=== PATIENT | male | born 1945 | race Caucasian/White ===

== ENCOUNTER 2022-02-03 09:50 | Outpatient (CLI) | payer MEDICARE, SELFPAY ==
[2022-02-03 14:36] LABS: Chloride* 101 mmol/L (96-114); Potassium* 5.6 mmol/L (3.6-5.1); Sodium* 139 mmol/L (135-149)
[2022-02-03 14:39] LABS: Carbon Dioxide* 32 mmol/L (20-32); Creatinine* 0.9 mg/dL (0.5-1.5); Estimated Glomerular Filt Rate 90 ml/min
[2022-02-03 14:40] LABS: Blood Urea Nitrogen* 16 mg/dL (7-30); Calcium* 10.1 mg/dL (8.4-10.6); Glucose* 114 mg/dL (60-115)
== END 2022-02-03 09:51 | disposition home or self-care (01) ==
LOC: LONREF 09:51
PROVIDERS: PCP Family Medicine; Visit Provider Family Medicine
DX: Z01.818 Encounter for other preprocedural examination (principal)
CPT/HCPCS: 80048

== ENCOUNTER 2022-07-29 11:18 | Outpatient (CLI) | payer MEDICARE, SELFPAY | END 2022-07-29 11:19 | disposition home or self-care (01) | PROVIDERS: PCP Family Medicine; Visit Provider Family Medicine | DX: R63.4 Abnormal weight loss (principal); E78.5 Hyperlipidemia, unspecified; R53.1 Weakness; R05.9 Cough, unspecified; Z12.5 Encounter for screening for malignant neoplasm of prostate; J47.9 Bronchiectasis, uncomplicated | CPT/HCPCS: 80061; 80076; 84153; 84443 ==

== ENCOUNTER 2022-08-06 08:39 | Outpatient (CLI) | payer MEDICARE, SELFPAY ==
--- NOTE | 2022-08-06 09:00 | CRLHL7_ITS ---
For Patients: As a result of the Century Cures Act, medical imaging exams and procedure reports are released immediately into your electronic medical record. You may view this report before your referring provider. If you have questions, please contact your health care provider. INDICATION: Unexplained weight loss. TECHNIQUE: CT chest, abdomen and pelvis acquired with 78 cc Isovue 370 IV contrast. COMPARISON: 05/19/2016. FINDINGS: CHEST Lungs and pleura: Relatively large areas of bronchiolitis in the right middle lobe and right lower lobe. No lobar consolidations. No suspicious nodules. No effusions, thickening, or pneumothorax. Heart and vasculature: Heart size is normal. Thoracic aorta and pulmonary artery are normal in caliber. Lymph node/mediastinum: No mediastinal, hilar, or axillary adenopathy. Chest wall: Normal. Bones: No suspicious bone lesions. ABDOMEN AND PELVIS: Liver: Normal in caliber and attenuation. No masses. Gallbladder and bile ducts: Unremarkable. Pancreas: Unremarkable. Spleen: Normal in caliber. No masses. Adrenal glands: Unremarkable. No masses. Kidneys: Single tiny nonobstructive stone is in the left kidney. Kidneys otherwise unremarkable. No hydronephrosis. GI tract: Normal in caliber and appearance. No sign of mass or inflammation. Vasculature: Unremarkable. Mesenteric arteries are patent. Lymph nodes: No lymphadenopathy. Omentum/peritoneum/retroperitoneum/abdominal wall: No masses or infiltration. No free air or significant free fluid. Pelvic organs: Unremarkable. Bones: A moderate compression deformity in the superior endplate of the L3 vertebral body and a mild compression deformity in the superior endplate of the L2 vertebral body are present. No other osseous abnormality. IMPRESSION: 1. Relatively severe infectious or inflammatory bronchiolitis in the right middle lobe and right lower lobe. 2. No other acute or specific abnormality to explain weight loss. 3. Compression deformities of the L3 vertebral body and to a lesser extent L2 vertebral body are new since the prior exam. Please note that all CT scans at this facility use dose modulation, iterative reconstruction, and/or weight-based dosing when appropriate to reduce radiation dose to as low as reasonably achievable. Dictated by Denys Krishna MD @ 08/10/2022 5:49:38 PM (Electronically Signed)
== END 2022-08-06 08:40 | disposition home or self-care (01) ==
LOC: CT 08:41
PROVIDERS: PCP Family Medicine; Visit Provider Family Medicine
DX: R63.4 Abnormal weight loss (principal); J98.4 Other disorders of lung
CPT/HCPCS: 71260; 74177; Q9967

== ENCOUNTER 2022-12-31 03:10 | Outpatient (CLI) | payer OTHER, MEDICARE, SELFPAY | END 2022-12-31 03:11 | disposition home or self-care (01) | LOC: AMB 01-11 14:00 | PROVIDERS: PCP Family Medicine; Visit Provider Family Medicine | DX: S29.9XXA Unspecified injury of thorax, initial encounter (principal); S01.81XA Laceration without foreign body of other part of head, initial encounter; V47.0XXA Car driver injured in collision with fixed or stationary object in nontraffic accident, initial encounter; Y92.410 Unspecified street and highway as the place of occurrence of the external cause ==

== ENCOUNTER 2023-12-02 10:07 | Outpatient (CLI) | payer MEDICARE, SELFPAY | END 2023-12-02 10:08 | disposition home or self-care (01) | PROVIDERS: PCP Family Medicine; Visit Provider Family Medicine | DX: Z00.00 Encounter for general adult medical examination without abnormal findings (principal); R63.4 Abnormal weight loss; R06.09 Other forms of dyspnea; R53.83 Other fatigue; J44.9 Chronic obstructive pulmonary disease, unspecified; Z12.5 Encounter for screening for malignant neoplasm of prostate | CPT/HCPCS: 80053; 84443; G0103 ==

== ENCOUNTER 2023-12-08 13:04 | Outpatient (CLI) | payer MEDICARE, SELFPAY ==
--- NOTE | 2023-12-08 14:00 | CRLHL7_ITS ---
For Patients: As a result of the Century Cures Act, medical imaging exams and procedure reports are released immediately into your electronic medical record. You may view this report before your referring provider. If you have questions, please contact your health care provider. Indication: ABNORMAL WEIGHT LOSS Technique: CT Chest/Abd/Pelvis 74CC ISOVUE 370 AND WATER PREP Please note that all CT scans at this facility use dose modulation, iterative reconstruction, and/or weight-based dosing when appropriate to reduce radiation dose to as low as reasonably achievable. Comparison: 08/06/2022 Findings: In the chest, the visualized thyroid is within normal limits. Similar fullness of the right hilar lymphoid tissue including calcified lymph nodes in the right hilum. Fullness of the right lower lobe bronchovascular bundle again noted. Emphysema. Chronic cystic changes within the left upper lobe. No pneumothorax. New nodular density right lower lobe measures 2.2 cm, series 3, image 65. Increased reticulonodular thickening within the right lower lobe. Similar reticulonodular densities right middle lobe. Mild mucous plugging within the right lower lobe airways. No pleural effusion. No thoracic vertebral body compression fracture. 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 In the abdomen, the liver is within normal limits. Calcifications in the spleen related to old granulomatous disease. Similar appearance of the adrenal glands. Small stone within the left kidney. No hydronephrosis. Unremarkable right kidney. Gallbladder normal. Pancreas normal. Atherosclerotic changes are present. Stable subcentimeter GE junction lymph nodes. In the abdomen, the bladder is normal. The prostate is mildly prominent. No fracture or inflammatory change. The appendix is within normal limits. Chronic wedge compression deformity L3. Interval development of compression fracture of L4. Mild spurring at the hip joints. Impression: Increased reticulonodular densities within the right lower lobe including a nodular density in the right lower lobe measuring 2.2 cm. Persistent fullness of the right hilar lymphoid tissue and soft tissue fullness along the right lower lobe bronchovascular bundles. Mild mucous plugging within several right lower lobe airways. Pulmonary referral recommended for consideration of right lower lobe bronchoscopy. No bowel obstruction or inflammatory change within the abdomen or pelvis. Interval development of a compression fracture of L4. Please note that all CT scans at this facility use dose modulation, iterative reconstruction, and/or weight-based dosing when appropriate to reduce radiation dose to as low as reasonably achievable. Dictated by Chung Boston MD @ 12/09/2023 12:42:37 PM (Electronically Signed)
== END 2023-12-08 13:05 | disposition home or self-care (01) ==
LOC: CT 13:07
PROVIDERS: PCP Family Medicine; Visit Provider Family Medicine
DX: R63.4 Abnormal weight loss (principal); R91.1 Solitary pulmonary nodule; M48.56XA Collapsed vertebra, not elsewhere classified, lumbar region, initial encounter for fracture
CPT/HCPCS: 71260; 74177; Q9967

== ENCOUNTER 2024-06-18 09:43 | Inpatient (IN) | payer MEDICARE, BC, SELFPAY ==
[2024-06-18] VITALS (21 sets, daily range): BP systolic 89–120; BP diastolic 62–78; PULSE 73–112; RESP 16–28; TEMP 35.8–37.1; O2SAT 84–98; BMI 23.0
--- NOTE | 2024-06-18 10:17 | CRLHL7_ITS ---
For Patients: As a result of the Century Cures Act, medical imaging exams and procedure reports are released immediately into your electronic medical record. You may view this report before your referring provider. If you have questions, please contact your health care provider. INDICATION: Hypoxia. Right-sided flank pain. Cold. TECHNIQUE: Axial intravenously infused CT cuts were performed through the chest during the peak phase of pulmonary arterial contrast opacification. 95 mL of Isovue-370 has been injected intravenously. FINDINGS: There are no pulmonary emboli. There is a dense infiltrate within the right middle lobe consistent with pneumonia. The lungs are mildly emphysematous. There is mixed fusiform and cystic bronchiectasis most affecting the left upper lobe and lingula. There is an area of mucoid impaction within the right lower lobe of (for example see image 139 series 7). There is a minimal right pleural effusion. There is no pericardial effusion. There are no enlarged hilar, mediastinal or axillary lymph nodes. The thoracic inlet appears normal. The visualized liver, spleen, pancreas, adrenals and the upper poles of both kidneys appear normal. There are no lytic or sclerotic skeletal lesions. IMPRESSION: 1. Negative for pulmonary emboli. 2. Dense infiltrate within the middle of the right lung consistent with pneumonia. Imaging follow-up to resolution is recommended. 3. Mildly emphysematous lungs. 4. Mixed fusiform and cystic bronchiectasis most affecting the left upper lobe and lingula. 5. Area of mucoid impaction within right lower lobe. Please note that all CT scans at this facility use dose modulation, iterative reconstruction, and/or weight-based dosing when appropriate to reduce radiation dose to as low as reasonably achievable. Dictated by Cameron Presley MD @ 06/18/2024 11:28:27 AM (Electronically Signed)
--- NOTE | 2024-06-18 10:19 | ED.SOB ---
HPI - SOB/Dyspnea General Chief Complaint: Shortness of Breath/Dyspnea Stated Complaint: shortness of breath, R sided flank pain, bad cold, Time Seen by Provider: 06/18/24 10:07 History of Present Illness HPI Narrative: This 78-year-old male is sent here from urgent care because of hypoxia. He does have COPD and typically takes Advair and has a albuterol inhaler. He has felt more short of breath over the past few weeks but especially over the past couple days. He does report a cough. He has pain in his right anterior ribs. He also reports some diarrhea symptoms over these past few weeks. He arrives here with oximetry at 84% on room air. He is not typically on oxygen at home. With nasal cannula oxygen his oximetry has improved to around 95%. Related Data Home Medications ?Medication ?Instructions ?Recorded ?Confirmed ascorbic acid (vitamin C) 500 mg mg PO 01/20/22 06/18/24 capsule aspirin 81 mg tablet,delayed 81 mg PO QDAY 01/20/22 06/18/24 release (Adult Low Dose Aspirin) garlic 300 mg capsule 300 mg PO QDAY 01/20/22 06/18/24 ginkgo biloba 40 mg tablet 40 mg PO QDAY 01/20/22 06/18/24 loratadine 10 mg tablet 10 mg PO DAILY 01/20/22 06/18/24 multivitamin (Multiple Vitamins 1 tab PO QDAY 01/20/22 06/18/24 tablet) acetaminophen 500 mg tablet 1,000 mg PO TID PRN 01/28/23 06/18/24 albuterol sulfate 90 mcg/actuation 2 puff inhalation Q4H PRN 01/28/23 06/18/24 aerosol inhaler ketoconazole 2 % shampoo 1 applic topical ONCE PRN 01/28/23 06/18/24 fish oil PO 12/02/23 06/18/24 Previous Rx's ?Medication ?Instructions ?Recorded fluticasone 250 mcg-salmeterol 50 1 inh inhalation BID #60 ea 01/20/22 mcg/dose blistr powdr for inhalation (Advair Diskus) desonide 0.05 % topical cream 1 applic topical BID #60 grams 05/14/23 ketoconazole 2 % shampoo 1 applic topical 2XW #120 mL 05/14/23 ketoconazole 2 % topical cream 1 applic topical 3XW #60 grams 05/14/23 tiotropium bromide 2.5 2 inh inhalation QAM #4 grams 12/02/23 mcg/actuation mist for inhalation (Spiriva Respimat) Allergies Allergy/AdvReac Type Severity Reaction Status Date / Time No Known Allergies Allergy Unknown Verified 06/18/24 10:37 Review of Systems Status of ROS: Reports: 10 or more systems reviewed and unremarkable except as noted in History and below Narrative: Constitutional: No fevers, no weight gain or loss. Eyes: No discharge. No vision changes. HENT: No congestion, no sore throat, no ear pain. Cardiovascular: No chest pain, no palpitations. Respiratory: Shortness of breath with cough. Chest pain with breathing in the right lower lateral ribs. Gastrointestinal: No abdominal pain, no vomiting, no diarrhea. Genitourinary: No dysuria, no hematuria. Musculoskeletal: Normal range of motion. Skin: No rashes, no pruritis. Neurological: No dizziness, weakness, sensory change, speech change. Endo/Heme/Allergies: No bruising or bleeding. No polydipsia. Pysch: no suicidality, no anxiety, no insomnia. All other systems reviewed and are negative. [facility] Medical History Fracture, sternum closed ?S22.20XA - Unspecified fracture of sternum, initial encounter for closed fracture (ICD-10) Multiple rib fractures ?S22.49XA - Multiple fractures of ribs, unspecified side, initial encounter for closed fracture (ICD-10) Seborrheic dermatitis ?L21.9 - Seborrheic dermatitis, unspecified (ICD-10) Pneumonia ?J18.9 - Pneumonia, unspecified organism (ICD-10) Surgical History Status post surgical removal of ganglion cyst ?Z98.890 - Other specified postprocedural states (ICD-10) Status post vasectomy (09/04/09) ?Z98.52 - Vasectomy status (ICD-10) Social History Smoking Status: Former smoker Exam Narrative: Exam Narrative: Constitutional: Well-developed, well-nourished, no acute distress. HEENT: Normocephalic, atraumatic. Neck: Normal range of motion. Nontender. Supple. Heart: Regular. No murmurs. Normal rate. Intact distal pulses. Lungs: Rhonchi auscultated in the right lung. Chest discomfort worsened by breathing in the right lower anterior and lateral ribs. Abdomen: Normal bowel sounds. Nontender. No rebound tenderness. Genitalia: Deferred. Back: No midline tenderness. Normal range of motion. Extremities: Normal range of motion. No injury. Skin: Intact. No rash. Warm. No erythema or pallor. Neurologic: No altered sensation. No weakness. Alert and oriented. Psychiatric: No suicidality. No anxiety or depression. No insomnia. Nursing notes and vitals signs are reviewed. Const: Vital Signs, click to edit/add: Vital Signs - 24 hr 06/18/24 09:48 06/18/24 09:58 06/18/24 10:00 Temperature 96.5 F L Pulse Rate 105 H Pulse Rate [Pulse Oximeter] 112 H Respiratory Rate 28 H Blood Pressure Blood Pressure [Le ft Upper Arm] 89/62 L Blood Pressure [Ri ght Upper Arm] 104/67 Pulse Oximetry 84 L 86 L 95 Oxygen Delivery Me thod Room Air Room Air Nasal Cannula Oxygen Flow Rate 2 06/18/24 10:00 06/18/24 10:03 06/18/24 10:15 Temperature Pulse Rate 104 H 103 H 101 H Pulse Rate [Pulse Oximeter] Respiratory Rate Blood Pressure 95/69 Blood Pressure [Le ft Upper Arm] Blood Pressure [Ri ght Upper Arm] Pulse Oximetry 94 95 93 Oxygen Delivery Me thod Nasal Cannula Nasal Cannula Nasal Cannula Oxygen Flow Rate 2 2 1 06/18/24 10:17 06/18/24 10:30 06/18/24 11:02 Temperature Pulse Rate 102 H 106 H Pulse Rate [Pulse Oximeter] Respiratory Rate Blood Pressure 98/74 Blood Pressure [Le ft Upper Arm] Blood Pressure [Ri ght Upper Arm] Pulse Oximetry 93 93 98 Oxygen Delivery Me thod Nasal Cannula Nasal Cannula Oxygen Flow Rate 1 1 06/18/24 11:15 Temperature Pulse Rate 104 H Pulse Rate [Pulse Oximeter] Respiratory Rate 24 Blood Pressure Blood Pressure [Le ft Upper Arm] Blood Pressure [Ri ght Upper Arm] Pulse Oximetry 94 Oxygen Delivery Me thod Nasal Cannula Oxygen Flow Rate 1 Course Vital Signs Vital signs: Initial Vital Signs Temperature 96.5 F L 06/18/24 09:48 Temperature Source Temporal Artery Scan 06/18/24 09:48 Pulse Rate 112 H 06/18/24 09:48 Respiratory Rate 28 H 06/18/24 09:48 Blood Pressure 104/67 06/18/24 09:48 Blood Pressure Mean 79 06/18/24 09:48 Blood Pressure Position Sitting 06/18/24 09:48 Pulse Oximetry 84 L 06/18/24 09:48 Oxygen Delivery Method Room Air 06/18/24 09:48 Vital Signs Temperature 96.5 F L 06/18/24 09:48 Pulse Rate 112 H 06/18/24 09:48 Respiratory Rate 28 H 06/18/24 09:48 Blood Pressure 104/67 06/18/24 09:48 Pulse Oximetry 84 L 06/18/24 09:48 Oxygen Delivery Method Room Air 06/18/24 09:48 Temperature 96.5 F L 06/18/24 09:48 Pulse Rate 104 H 06/18/24 11:15 Respiratory Rate 24 06/18/24 11:15 Blood Pressure 98/74 06/18/24 11:02 Pulse Oximetry 94 06/18/24 11:15 Oxygen Delivery Method Nasal Cannula 06/18/24 11:15 Oxygen Flow Rate 1 06/18/24 11:15 Medications Administered Medications: Discontinued Medications Generic Name Dose Route Start Last Admin Trade Name Freq PRN Reason Stop Dose Admin Albuterol/Ipratropium 1 neb 06/18/24 10:16 06/18/24 10:54 Iprat-Albut 0.5-2.5 Mg/3 Ml Neb 06/18/24 10:17 1 neb ONCE ONE Administration Azithromycin 500 mg 06/18/24 11:00 06/18/24 11:10 Azithromycin 250 Mg Tablet PO 06/18/24 11:01 500 mg ONCE ONE Administration Ceftriaxone Sodium 1 gm/ 100 mls @ 200 mls/hr 06/18/24 11:00 06/18/24 11:11 Sodium Chloride IVPB 06/18/24 11:01 200 mls/hr ONCE ONE Administration Methylprednisolone Sodium Succinate 125 mg 06/18/24 10:16 06/18/24 10:55 Methylprednisolone Sod Succ 62.5 Mg/Ml (125) IVP 06/18/24 10:17 125 mg ONCE ONE Administration MDM - SOB/Dyspnea MDM Narrative Medical decision making narrative: This patient comes in with hypoxia with oximetry at 84% on room air. With nasal cannula oxygen he is maintaining good oximetry at around 95%. An IV was established and labs are acquired. His white count returns elevated at 37.7. His lactate level is in normal range. A blood culture is obtained and the page and did receive an IV dose of Rocephin and an oral dose of Zithromax. CT scan of the chest shows an obvious infiltrate in the right lower lobe up against the chest wall. This is what is causing his pain. The patient also received a DuoNeb and an IV dose of methylprednisolone. I did speak with the hospitalist on-call, Paulette Gutierrez, who agrees to his admission into the hospital. Lab Data Labs: Lab Results 06/18/24 06/18/24 06/18/24 Range/Units 10:00 10:05 10:18 WBC 37.77 H* (4.50-11.00) K/uL RBC 4.67 (4.30-5.90) m/uL Hgb 14.9 (13.5-17.5) gm/dL Hct 45.8 (37.0-53.0) % MCV 98 (80-100) fL MCH 32 (26-34) pg MCHC 33 (32-36) gm/dL RDW Coeff of Kianna 13.4 (11.5-15.5) % Plt Count 299 (140-440) K/uL Neut % (Auto) 85.9 H (42.0-72.0) % Lymph % (Auto) 3.4 L (20-44) % Lane % (Auto) 9.5 (0.0-11.0) % Eos % (Auto) 0.1 (0.0-7.0) % Baso % (Auto) 0.1 (0.0-3.0) % Neut # (Auto) 32.40 H (1.7-7.0) K/uL Lymph # (Auto) 1.30 (0.90-2.90) K/uL Lane # (Auto) 3.60 H (0.00-0.90) K/UL Eos # (Auto) 0.00 (0.00-0.50) K/uL Baso # (Auto) 0.00 (0.00-0.30) K/uL Abs Immat Gran (auto) 0.40 H (0.00-0.30) K/uL Imm/Tot Granulo (auto) 1.0 % Diff Slide Review Acceptable Review (Acceptable) VBG pH (7.32-7.43) VBG pCO2 (40-50) mmHG VBG pO2 (25-47) mmHG VBG HCO3 (21-28) mmol/L Sodium 136 (135-149) mmol/L Potassium 4.7 (3.6-5.1) mmol/L Chloride 98 (96-114) mmol/L Carbon Dioxide 31 (20-32) mmol/L Anion Gap 7 (7-15) mEq/L BUN 27 (7-30) mg/dL Creatinine 0.8 (0.5-1.5) mg/dL Estimated GFR 92 ml/min Glucose 118 H (60-115) mg/dL Lactate (0.5-1.9) mmol/L Calcium 9.8 (8.4-10.6) mg/dL SARS-CoV-2 (PCR) Negative SARS-CoV-2 (Negative) Influenza Type A (PCR) Negative PCR FLU A (Negative) Influenza Type B (PCR) Negative PCR FLU B (Negative) RSV (PCR) Negative PCR RSV (Negative) POC Creatinine (0.6-1.3) mg/dl POC Troponin I 0.00 L (0.01-0.04) ng/ml 06/18/24 06/18/24 Range/Units 10:23 10:30 WBC (4.50-11.00) K/uL RBC (4.30-5.90) m/uL Hgb (13.5-17.5) gm/dL Hct (37.0-53.0) % MCV (80-100) fL MCH (26-34) pg MCHC (32-36) gm/dL RDW Coeff of Kianna (11.5-15.5) % Plt Count (140-440) K/uL Neut % (Auto) (42.0-72.0) % Lymph % (Auto) (20-44) % Lane % (Auto) (0.0-11.0) % Eos % (Auto) (0.0-7.0) % Baso % (Auto) (0.0-3.0) % Neut # (Auto) (1.7-7.0) K/uL Lymph # (Auto) (0.90-2.90) K/uL Lane # (Auto) (0.00-0.90) K/UL Eos # (Auto) (0.00-0.50) K/uL Baso # (Auto) (0.00-0.30) K/uL Abs Immat Gran (auto) (0.00-0.30) K/uL Imm/Tot Granulo (auto) % Diff Slide Review (Acceptable) VBG pH 7.376 (7.32-7.43) VBG pCO2 53 H (40-50) mmHG VBG pO2 36.6 (25-47) mmHG VBG HCO3 31 H (21-28) mmol/L Sodium (135-149) mmol/L Potassium (3.6-5.1) mmol/L Chloride (96-114) mmol/L Carbon Dioxide (20-32) mmol/L Anion Gap (7-15) mEq/L BUN (7-30) mg/dL Creatinine (0.5-1.5) mg/dL Estimated GFR ml/min Glucose (60-115) mg/dL Lactate 1.3 (0.5-1.9) mmol/L Calcium (8.4-10.6) mg/dL SARS-CoV-2 (PCR) (Negative) Influenza Type A (PCR) (Negative) Influenza Type B (PCR) (Negative) RSV (PCR) (Negative) POC Creatinine 0.9 (0.6-1.3) mg/dl POC Troponin I (0.01-0.04) ng/ml Imaging Data CT scan - chest: Radiologist's impression: 1. Negative for pulmonary emboli. 2. Dense infiltrate within the middle of the right lung consistent with pneumonia. Imaging follow-up to resolution is recommended. 3. Mildly emphysematous lungs. 4. Mixed fusiform and cystic bronchiectasis most affecting the left upper lobe and lingula. 5. Area of mucoid impaction within right lower lobe. ECG Data Attestation: I personally reviewed and interpreted this ECG as follows: Interpretation: Sinus tachycardia rhythm. Rate is 102 beats per minute. There are no ST or T-wave abnormalities. Discharge Plan Discharge Clinical Impression: Pneumonia Patient Disposition: Admitted As Observation Condition: Unchanged Prescriptions: No Action aspirin [Adult Low Dose Aspirin] 81 mg tablet,delayed release (DR/EC) 81 mg PO QDAY multivitamin [Multiple Vitamins] Tablet 1 tab PO QDAY ascorbic acid (vitamin C) 500 mg capsule PO ginkgo biloba 40 mg tablet 40 mg PO QDAY Rx Instructions: give with meal/snack loratadine 10 mg tablet 10 mg PO DAILY garlic 300 mg capsule 300 mg PO QDAY fluticasone propion-salmeterol [Advair Diskus] 250-50 mcg/dose blister with device 1 inh inhalation BID Qty: 60 0RF acetaminophen 500 mg tablet 1,000 mg PO TID PRN ketoconazole 2 % shampoo 1 applic topical ONCE PRN albuterol sulfate 90 mcg/actuation HFA aerosol inhaler 2 puff inhalation Q4H PRN fish oil PO Spiriva Respimat 2.5 mcg/actuation mist 2 inh inhalation QAM Qty: 4 5RF ketoconazole 2 % cream 1 applic topical 3XW Qty: 60 1RF Rx Instructions: Apply every morning. desonide 0.05 % cream 1 applic topical BID Qty: 60 0RF Rx Instructions: Use up to 8 days per month. ketoconazole 2 % shampoo 1 applic topical 2XW Qty: 120 2RF Follow Up/Referrals: Braxton Oconnor MD [Primary Care Provider] -
[2024-06-18 10:22] LABS: Basophils Percent Auto 0.1 % (0.0-3.0); Eosinophils Percent Auto 0.1 % (0.0-7.0); Hematocrit 45.8 % (37.0-53.0); Hemoglobin* 14.9 gm/dL (13.5-17.5); Lymphocytes Percent Auto 3.4 % (20-44); Mean Corpuscular HGB Conc 33 gm/dL (32-36); Mean Corpuscular Hemoglobin 32 pg (26-34); Mean Corpuscular Volume 98 fL (80-100); Monocytes Percent Auto 9.5 % (0.0-11.0); Neutrophils Percent Auto 85.9 % (42.0-72.0); Platelet Count* 299 K/uL (140-440); RDW Coefficient of Variation % 13.4 % (11.5-15.5); Red Blood Count 4.67 m/uL (4.30-5.90)
[2024-06-18 10:26] LABS: White Blood Count* 37.77 K/uL (4.50-11.00)
[2024-06-18 10:27] LABS: Slide Review Reflex Yes
[2024-06-18 10:28] LABS: Chloride* 98 mmol/L (96-114)
[2024-06-18 10:29] LABS: Potassium* 4.7 mmol/L (3.6-5.1); Sodium* 136 mmol/L (135-149)
[2024-06-18 10:31] LABS: Anion Gap 7 mEq/L (7-15); Carbon Dioxide* 31 mmol/L (20-32); Creatinine* 0.8 mg/dL (0.5-1.5); Estimated Glomerular Filt Rate 92 ml/min
[2024-06-18 10:32] LABS: Blood Urea Nitrogen* 27 mg/dL (7-30); Calcium* 9.8 mg/dL (8.4-10.6); Glucose* 118 mg/dL (60-115)
[2024-06-18 10:38] LABS: HCO3 VBG 31 mmol/L (21-28); Lactate* 1.3 mmol/L (0.5-1.9); PCO2 VBG 53 mmHG (40-50); PO2 VBG 36.6 mmHG (25-47); pH VBG 7.376 (7.32-7.43)
[2024-06-18 10:42] LABS: Creatinine, Point-of-Care* 0.9 mg/dl (0.6-1.3)
[2024-06-18 10:47] LABS: Slide Review Acceptable Review (Acceptable)
[2024-06-18 10:49] LABS: PCR FLU A Negative PCR FLU A (Negative); PCR FLU B Negative PCR FLU B (Negative); PCR RSV Negative PCR RSV (Negative); SARS PCR* Negative SARS-CoV-2 (Negative)
[2024-06-18] MEDS: IPRAT-ALBUT 0.5-2.5 MG/3 ML NEB 1 NEB IH (10:54)
[2024-06-18] MEDS: METHYLPREDNISOLONE SOD SUCC 62.5 MG/ML (125) 125 MG IVP (10:55)
[2024-06-18] MEDS: AZITHROMYCIN 250 MG TABLET 500 MG PO (11:10)
[2024-06-18] MEDS: cefTRIAXone 1 GM in 0.9 % SODIUM CHLORIDE Mini-bag 100 ML IVPB (11:11)
[2024-06-18] MEDS: 0.9 % SODIUM CHLORIDE 1000 ml 1,000 ML IV (12:08)
--- NOTE | 2024-06-18 15:00 | PM.IMHP1 ---
Hospitalist- H&P: HPI History of Present Illness Date Seen: 06/18/24 Chief complaint: shortness of breath, R sided flank pain, bad cold, Narrative: Juan Pablo Huffman is a 78 year old male who presented to the emergency room today with his for right-sided chest pain, dyspnea on exertion, and cough. He has had URI symptoms for the last 3 weeks or so, significantly worse in the past 2-3 days. He has had difficulty catching his breath and has had a significantly decreased appetite. He has had right-sided chest discomfort, worse with cough. He has been unable to lay on his right side secondary to discomfort. No recent travel, lots of + URI exposures. ER: - white blood count of 37 with 85% PMNs, normal lytes and lactate - oxygen saturation of 84% on room air, improved with supplemental oxygen - presenting blood pressure 89/62 with pulse in the 100s; both improved after IV fluid bolus - CT chest revealed dense infiltrate in the middle right lung consistent with pneumonia, mild emphysema, bronchiectasis with mucoid impaction in right lower lobe - given ceftriaxone and azithromycin, nebulizer treatment, IV steroids - reassuring EKG, negative troponin Patient admitted to the hospital given acute hypoxic respiratory failure in the setting of pneumonia. History of COPD, on Advair and prn Albuterol. Spiriva has been cost prohibitive. Dr. Oconnor is PCP. Notably saw Dr. Oconnor last summer for unintended weight loss; imaging at that time revealed a 2.2cm nodular density in the right lower lobe with mucus plugging, recommended bronchoscopy. Referral to Pulmonary placed but not yet completed. Review of Systems Narrative: - decreased appetite, has had alternating diarrhea/constipation. Noted an episode of passing mucous this past week, no hematochezia - no L sided chest pain, no h/o CAD [facility] Medical History (Updated 06/18/24 @ 16:23 by Katherine Han MD) Hyperlipidemia ?E78.5 - Hyperlipidemia, unspecified (ICD-10) Chronic obstructive pulmonary disease ?J44.9 - Chronic obstructive pulmonary disease, unspecified (ICD-10) Bronchiectasis ?J47.9 - Bronchiectasis, uncomplicated (ICD-10) Erectile dysfunction (09/04/09) ?N52.9 - Male erectile dysfunction, unspecified (ICD-10) Polyp of colon (09/04/09) ?K63.5 - Polyp of colon (ICD-10) Vertebral compression fracture ?M48.50XA - Collapsed vertebra, not elsewhere classified, site unspecified, initial encounter for fracture (ICD-10) Seasonal allergies (09/04/09) ?J30.2 - Other seasonal allergic rhinitis (ICD-10) Fracture, sternum closed ?S22.20XA - Unspecified fracture of sternum, initial encounter for closed fracture (ICD-10) Multiple rib fractures ?S22.49XA - Multiple fractures of ribs, unspecified side, initial encounter for closed fracture (ICD-10) Seborrheic dermatitis ?L21.9 - Seborrheic dermatitis, unspecified (ICD-10) Pneumonia ?J18.9 - Pneumonia, unspecified organism (ICD-10) Surgical History Status post surgical removal of ganglion cyst ?Z98.890 - Other specified postprocedural states (ICD-10) Status post vasectomy (09/04/09) ?Z98.52 - Vasectomy status (ICD-10) Social History (Updated 06/18/24 @ 16:24 by Katherine Han MD) Narrative: Lives with Tara (medical decision maker if needed) in [place], retired ross lift operator. Social ETOH (2-3 times/week), nonsmoker. Requests Full Code Status. What is your current living situation?: I presently have a place to live Problems where you live: no known problems Problems where you live details: na In the past 12 months, utilities in danger of being shut off: no In past 12 months, lack of transportation kept you from medical appts, meetings, work, or getting things needed for daily living: no In the past 12 mos, have been you worried that your food would run out before you had money to buy more?: never true In the past 12 mos, the food you bought just didn't last and you didn't have money to buy more?: never true Highest level of school completed/degree received: 9th grade Smoking Status: Former smoker How often do you have a drink containing alcohol: 2-3 times a week Alcohol type: hard liquor Alcohol type details: social How many standard drinks containing alcohol do you have on a typical day: 1 or 2 How often do you have six or more drinks on one occasion: Weekly AUDIT-C Alcohol total score: 6 Non-prescribed substance use: denies use Caffeine: Yes (2 cups) How often does anyone, including family, friends and others, physically hurt you: never How often does anyone, including family, friends and others, insult or talk down to you: never How often does anyone, including family, friends and others, threaten you with harm: never How often does anyone, including family, friends and others, scream or curse at you: never service: No Meds Home Medications and Allergies Home Medications ?Medication ?Instructions ?Recorded ?Confirmed ?Type ascorbic acid (vitamin C) 500 mg 500 mg PO DAILY 01/20/22 06/18/24 History capsule aspirin 81 mg tablet,delayed 81 mg PO DAILY 01/20/22 06/18/24 History release (Adult Low Dose Aspirin) garlic 300 mg capsule 300 mg PO DAILY 01/20/22 06/18/24 History ginkgo biloba 40 mg tablet 40 mg PO DAILY 01/20/22 06/18/24 History loratadine 10 mg tablet 10 mg PO DAILY 01/20/22 06/18/24 History multivitamin (Multiple Vitamins 1 tab PO DAILY 01/20/22 06/18/24 History tablet) acetaminophen 500 mg tablet 1,000 mg PO TID PRN 01/28/23 06/18/24 History albuterol sulfate 90 mcg/actuation 2 puff inhalation Q4H PRN 01/28/23 06/18/24 History aerosol inhaler desonide 0.05 % topical cream 1 applic topical BID PRN 06/18/24 06/18/24 History ketoconazole 2 % shampoo 1 applic topical 2XW PRN 06/18/24 06/18/24 History ketoconazole 2 % topical cream 1 applic topical 3XW PRN 06/18/24 06/18/24 History omega 3-vfs-sew-fish oil 1,000 mg 1 cap PO Q48H 06/18/24 06/18/24 History (120 mg-180 mg) capsule (Fish Oil) Allergies Allergy/AdvReac Type Severity Reaction Status Date / Time No Known Allergies Allergy Unknown Verified 06/18/24 10:37 Exam Narrative: Exam Narrative: GEN: Alert and oriented, sitting comfortably in bed and speaking in full sentences. Wearing supplemental oxygen HEENT: EOMIs bilaterally, no scleral icterus CV: RRR, No concerning murmurs, rubs, or gallops R: No wheezing, significantly decreased breath sounds on the right Ext: wwp, no concerning edema Skin: Scattered bruising of extremities, no other concerning skin lesions or rashes on exposed skin Neuro: No focal deficits, no resting tremor Psych: Appropriate Const: Vital Signs, click to edit/add: Vital Signs - 24 hr 06/18/24 09:48 06/18/24 09:58 06/18/24 10:00 Temperature 96.5 F L Pulse Rate 105 H Pulse Rate [Left R adial] Pulse Rate [Pulse Oximeter] 112 H Respiratory Rate 28 H Blood Pressure Blood Pressure [Le ft Arm] Blood Pressure [Le ft Upper Arm] 89/62 L Blood Pressure [Ri ght Upper Arm] 104/67 Pulse Oximetry 84 L 86 L 95 Oxygen Delivery Me thod Room Air Room Air Nasal Cannula Oxygen Flow Rate 2 06/18/24 10:00 06/18/24 10:03 06/18/24 10:15 Temperature Pulse Rate 104 H 103 H 101 H Pulse Rate [Left R adial] Pulse Rate [Pulse Oximeter] Respiratory Rate Blood Pressure 95/69 Blood Pressure [Le ft Arm] Blood Pressure [Le ft Upper Arm] Blood Pressure [Ri ght Upper Arm] Pulse Oximetry 94 95 93 Oxygen Delivery Me thod Nasal Cannula Nasal Cannula Nasal Cannula Oxygen Flow Rate 2 2 1 06/18/24 10:17 06/18/24 10:30 06/18/24 11:02 Temperature Pulse Rate 102 H 106 H Pulse Rate [Left R adial] Pulse Rate [Pulse Oximeter] Respiratory Rate Blood Pressure 98/74 Blood Pressure [Le ft Arm] Blood Pressure [Le ft Upper Arm] Blood Pressure [Ri ght Upper Arm] Pulse Oximetry 93 93 98 Oxygen Delivery Me thod Nasal Cannula Nasal Cannula Oxygen Flow Rate 1 1 06/18/24 11:15 06/18/24 11:31 06/18/24 12:40 Temperature 97.0 F L Pulse Rate 104 H 93 Pulse Rate [Left R adial] 103 H Pulse Rate [Pulse Oximeter] Respiratory Rate 24 16 24 Blood Pressure 100/69 Blood Pressure [Le ft Arm] 110/72 Blood Pressure [Le ft Upper Arm] Blood Pressure [Ri ght Upper Arm] Pulse Oximetry 94 94 91 Oxygen Delivery Me thod Nasal Cannula Nasal Cannula Nasal Cannula Oxygen Flow Rate 1 1 1 06/18/24 12:53 Temperature Pulse Rate Pulse Rate [Left R adial] Pulse Rate [Pulse Oximeter] Respiratory Rate 24 Blood Pressure Blood Pressure [Le ft Arm] Blood Pressure [Le ft Upper Arm] Blood Pressure [Ri ght Upper Arm] Pulse Oximetry 91 Oxygen Delivery Me thod Nasal Cannula Oxygen Flow Rate 1 Hospitalist - H&P: Result Labs Labs: Short CBC 06/18/24 Range/Units 10:05 WBC 37.77 H* (4.50-11.00) K/uL Hgb 14.9 (13.5-17.5) gm/dL Hct 45.8 (37.0-53.0) % Plt Count 299 (140-440) K/uL BMP 06/18/24 10:05 Sodium 136 Potassium 4.7 Chloride 98 Carbon Dioxide 31 BUN 27 Creatinine 0.8 Glucose 118 H Calcium 9.8 Assessment and Plan Assessment and plan (1) SIRS (systemic inflammatory response syndrome): Problem comment: - hypotension, tachycardia, hypoxia, WBC 37 - improved after IVF bolus - telemetry, close monitoring, blood culture pending Status: Acute (2) Acute hypoxic respiratory failure: Problem comment: - 2/2 PNA and other findings on CT (mucous plugging, bronchiectasis), h/o COPD - RT referral for education, accessories Status: Acute (3) Pneumonia: Problem comment: - dense infiltrate of R lung noted on 06/18/24 CT - given degree of illness upon presentation and impressive leukocytosis, treat with Zosyn and Vancomycin, narrow with improvement - Strep and Legionella Ag pending Status: Acute (4) Pulmonary mass: Problem comment: - noted 12/15 CT - hasn't yet followed up with Pulmonology for bronchoscopy, recommend this as an outpatient Status: Acute Plan - per above - Full Code - updated at bedside, questions answered - appropriate for inpatient admission given acute hypoxic respiratory failure, severe PNA, SIRS, WBC 37
[2024-06-18] MEDS: PIPERACILLIN/TAZOBACTAM 3.375 GM in 0.9 % SODIUM CHLORIDE Mini-bag 100 ML IVPB ×2 (15:13→21:09)
[2024-06-18] MEDS: VANCOMYCIN 1 GM/200 ML 1 GM/200 ML PIGGYBACK IVPB (15:49)
[2024-06-18 19:00] LABS: Legionella pneumo Ag Urine L. pneumo Negative (Negative); S pneumo Ag Urine S. pneumo Negative (Negative)
--- NOTE | 2024-06-18 19:36 | PC.NURSE ---
pt was admitted for sob and c/p. he has pnx. iv is patent. he is eating, drinking and voiding. tele is NSR. he is getting IV antibiotics.
[2024-06-18] MEDS: SODIUM CHLORIDE 0.9 % (FLUSH) 10 ML SYRINGE 5 ML IVF (21:08)
[2024-06-18] MEDS: ENOXAPARIN 40 MG/0.4 ML INJ SUBCUT (21:08)
--- NOTE | 2024-06-18 23:03 | PC.NURSE ---
Shift note: Patient has been on 1L of oxygen throughout the shift. Alert and oriented. Ambulated with SBA. No fever recorded. Vitally stable.
[2024-06-19] VITALS (12 sets, daily range): BP systolic 91–127; BP diastolic 61–90; PULSE 52–77; RESP 16–22; TEMP 36.4–36.8; O2SAT 84–94
[2024-06-19] MEDS: PIPERACILLIN/TAZOBACTAM 3.375 GM in 0.9 % SODIUM CHLORIDE Mini-bag 100 ML IVPB ×4 (02:20→20:28)
[2024-06-19] MEDS: VANCOMYCIN 1 GM/200 ML 1 GM/200 ML PIGGYBACK IVPB ×2 (02:56→15:57)
[2024-06-19] MEDS: OMEPRAZOLE 20 MG CAPSULE DR 40 MG PO (06:12)
--- NOTE | 2024-06-19 06:32 | PC.NURSE ---
Pt remained on 1L NC overnight with sats in the low 90s. Up IND in room. Pleasant and cooperative. Very enthusiastic to use Aerobika. States that it helps him bring up phlegm
[2024-06-19 07:29] LABS: Basophils Percent Auto 0.1 % (0.0-3.0); Hematocrit 40.4 % (37.0-53.0); Hemoglobin* 12.8 gm/dL (13.5-17.5); Immature Granulocytes Pct Auto 1.1 %; Lymphocytes Percent Auto 2.9 % (20-44); Mean Corpuscular HGB Conc 32 gm/dL (32-36); Mean Corpuscular Hemoglobin 31 pg (26-34); Mean Corpuscular Volume 99 fL (80-100); Neutrophils Percent Auto 90.9 % (42.0-72.0); Platelet Count* 259 K/uL (140-440); RDW Coefficient of Variation % 13.7 % (11.5-15.5); Red Blood Count 4.08 m/uL (4.30-5.90)
[2024-06-19 07:38] LABS: Slide Review Reflex No
[2024-06-19 07:45] LABS: Albumin* 3.2 g/dL (3.3-5.0)
[2024-06-19 07:46] LABS: Chloride* 105 mmol/L (96-114); Potassium* 5.1 mmol/L (3.6-5.1); Sodium* 138 mmol/L (135-149)
[2024-06-19 07:48] LABS: Anion Gap 4 mEq/L (7-15); Bilirubin Total* 0.5 mg/dL (0.1-1.5); Carbon Dioxide* 29 mmol/L (20-32); Creatinine* 0.6 mg/dL (0.5-1.5); Est. Creatinine Clearance* 58.46; Estimated Glomerular Filt Rate 100 ml/min
[2024-06-19 07:49] LABS: Alanine Aminotransferase* 25 U/L (4-50); Alkaline Phosphatase* 73 U/L (40-150); Aspartate Amino Transferase* 31 U/L (12-35); Blood Urea Nitrogen* 22 mg/dL (7-30); Calcium* 9.4 mg/dL (8.4-10.6); Glucose* 221 mg/dL (60-115); Total Protein* 6.7 g/dL (6.0-8.3)
[2024-06-19] MEDS: LORATADINE 10 MG TABLET PO (08:44)
[2024-06-19] MEDS: SODIUM CHLORIDE 0.9 % (FLUSH) 10 ML SYRINGE 5 ML IVF ×2 (08:44→20:32)
[2024-06-19] MEDS: predniSONE 20 MG TABLET 40 MG PO (08:44)
[2024-06-19] MEDS: guaiFENesin 600 MG TAB.ER.12H PO ×2 (12:37→20:31)
--- NOTE | 2024-06-19 14:31 | P.IMPN_ITS ---
Progress Note: A&P Assessment and plan (1) SIRS (systemic inflammatory response syndrome): Problem details: - hypotension, tachycardia, hypoxia, WBC 37 - improved after IVF bolus - telemetry, close monitoring, blood culture pending Status: Acute (2) Acute hypoxic respiratory failure: Problem details: - 2/2 PNA and other findings on CT (mucous plugging, bronchiectasis), h/o COPD - RT referral for education, accessories - continue to wean oxygen as able, may need home oxygen for a bit which he has used in the past Status: Acute (3) Pneumonia: Problem details: - dense infiltrate of R lung noted on 06/18/24 CT - given degree of illness upon presentation and impressive leukocytosis, treat with Zosyn and Vancomycin, narrow with improvement - Mucinex, aerobika, prednisone, nebs p.r.n., continue home inhaler - Strep and Legionella Ag negative Status: Acute (4) Pulmonary mass: Problem details: - noted 1st 01/14 and again 12/15 CT - reports unwanted weight loss over past year, increased fatigue, decreased energy - hasn't yet followed up with Pulmonology for bronchoscopy, recommend this as an outpatient Status: Acute Time Spent With Patient Total time spent: Total time spent caring for the patient today was 45 minutes. This includes time spent for the visit reviewing the chart, time spent during the visit, time spent after the visit and documentation and planning in coordination of care. Subjective Date Seen: 06/19/24 Interval history: Patient seen with at bedside. Reports feeling pretty good, better than yesterday. Denies headache or dizziness. Discomfort of right chest is improving, able to lie on it now. Tolerating orals without nausea vomiting. WBC significantly improving, still requiring oxygen supplementation though decreasing Exam Narrative: Exam Narrative: PHYSICAL EXAM General: Pleasant, conversant, NAD HEENT: Normocephalic, atraumatic, sclera white, EOMI, oral mucosa moist Cardiovascular: RRR, S1S2. No pitting edema Pulmonary: Diffusely diminished, mildly coarse with expiratory wheezes right lobes. No dyspnea on 1 L Neurological: Alert, answering questions appropriately, cranial nerves intact, no focal findings Extremities: No gross joint deformity or swelling. AROMI. Neurovascularly intact Skin: Warm, dry. Const: Vital Signs, click to edit/add: Vital Signs - 24 hr 06/18/24 15:15 06/18/24 15:15 06/18/24 15:41 Temperature Pulse Rate 86 Pulse Rate [Left R adial] 103 H Respiratory Rate 24 24 Blood Pressure [Le ft Arm] Pulse Oximetry 91 Oxygen Delivery Me thod Nasal Cannula Oxygen Flow Rate 1 06/18/24 15:42 06/18/24 19:00 06/18/24 20:13 Temperature 98.8 F 98.1 F Pulse Rate 82 Pulse Rate [Left R adial] 90 84 Respiratory Rate 18 18 Blood Pressure [Le ft Arm] 113/78 120/72 Pulse Oximetry 90 92 Oxygen Delivery Me thod Nasal Cannula Nasal Cannula Oxygen Flow Rate 1 1 06/18/24 23:24 06/18/24 23:45 06/18/24 23:47 Temperature 98.7 F Pulse Rate 73 Pulse Rate [Left R adial] 78 78 Respiratory Rate 16 16 Blood Pressure [Le ft Arm] 109/70 Pulse Oximetry 93 Oxygen Delivery Me thod Nasal Cannula Oxygen Flow Rate 1 06/18/24 23:49 06/19/24 02:54 06/19/24 07:00 Temperature 97.6 F Pulse Rate Pulse Rate [Left R adial] 71 Respiratory Rate 16 18 22 Blood Pressure [Le ft Arm] 106/65 Pulse Oximetry 93 92 Oxygen Delivery Me thod Nasal Cannula Nasal Cannula Oxygen Flow Rate 1 1 06/19/24 07:00 06/19/24 07:40 06/19/24 08:00 Temperature 97.9 F Pulse Rate 52 L Pulse Rate [Left R adial] 68 Respiratory Rate 22 22 Blood Pressure [Le ft Arm] 91/61 Pulse Oximetry 89 92 Oxygen Delivery Me thod Room Air Nasal Cannula Oxygen Flow Rate 1 06/19/24 11:39 Temperature 97.5 F L Pulse Rate Pulse Rate [Left R adial] 76 Respiratory Rate 18 Blood Pressure [Le ft Arm] 123/71 Pulse Oximetry 92 Oxygen Delivery Me thod Nasal Cannula Oxygen Flow Rate 1 Labs Labs: Laboratory Results - last 24 hr 06/18/24 06/19/24 18:23 05:49 WBC 18.90 H RBC 4.08 L Hgb 12.8 L Hct 40.4 MCV 99 MCH 31 MCHC 32 RDW Coeff of Kianna 13.7 Plt Count 259 Neut % (Auto) 90.9 H Lymph % (Auto) 2.9 L [place] % (Auto) 5.0 Eos % (Auto) 0.0 Baso % (Auto) 0.1 Neut # (Auto) 17.20 H Lymph # (Auto) 0.50 L [place] # (Auto) 0.90 Eos # (Auto) 0.00 Baso # (Auto) 0.00 Abs Immat Gran (auto) 0.20 Imm/Tot Granulo (auto) 1.1 Sodium 138 Potassium 5.1 Chloride 105 Carbon Dioxide 29 Anion Gap 4 L BUN 22 Creatinine 0.6 Estimated Creat Clear 58.46 Estimated GFR 100 Glucose 221 H Calcium 9.4 Total Bilirubin 0.5 AST 31 ALT 25 Alkaline Phosphatase 73 Total Protein 6.7 Albumin 3.2 L Procalcitonin 14.70 H Urine L. pneumophilia Ag L. pneumo Negative Urine Strep pneumoniae Ag S. pneumo Negative
[2024-06-19] MEDS: SENNOSIDES/DOCUSATE TABLET 1 TAB PO (15:56)
--- NOTE | 2024-06-19 19:00 | PC.NURSE ---
End of shift summary: Pt has been A&O, afebrile and VSS (with exception to ongoing supplemental O2 needs). Pt has needed 1-1.5L NC to maintain > 88%. Attempted to wean off O2 sitting on EOB and he dropped down to 84% on RA. Pt denies having any pain, nausea or dizziness. He is up independently in the room & SBA with O2 in the halls. He is continent of B&B. No BM today; reports some constipation so he was given PRN stool softener. LS are coarse with exp wheezing in RLL. Denies SOB at rest but experiences hypoxia. Productive cough with thick phlegm; utilizes Aerobika frequently & Mucinex BID started today. TELE reads NSR. PIV in right AC SL and C/D/I. Gave IV Zosyn & IV Vanco per eMAR schedule. ?
[2024-06-19] MEDS: ENOXAPARIN 40 MG/0.4 ML INJ SUBCUT (20:31)
[2024-06-20] VITALS (9 sets, daily range): BP systolic 111–132; BP diastolic 60–93; PULSE 55–78; RESP 18–22; TEMP 36.3–36.8; O2SAT 85–94; BMI 23.4
[2024-06-20] MEDS: PIPERACILLIN/TAZOBACTAM 3.375 GM in 0.9 % SODIUM CHLORIDE Mini-bag 100 ML IVPB ×2 (02:22→09:03)
[2024-06-20] MEDS: VANCOMYCIN 1 GM/200 ML 1 GM/200 ML PIGGYBACK IVPB (02:58)
[2024-06-20] MEDS: OMEPRAZOLE 20 MG CAPSULE DR 40 MG PO (06:32)
--- NOTE | 2024-06-20 07:01 | P.IMPN_ITS ---
Progress Note: A&P Assessment and plan (1) SIRS (systemic inflammatory response syndrome): Problem details: - hypotension, tachycardia, hypoxia, WBC 37 - improved after IVF bolus - telemetry, close monitoring, blood culture pending -06/20 - resolved Status: Acute (2) Acute hypoxic respiratory failure: Problem details: - 2/2 PNA and other findings on CT (mucous plugging, bronchiectasis), h/o COPD - RT referral for education, accessories - continue to wean oxygen as able, may need home oxygen for a bit which he has used in the past -06/20, improving Status: Acute (3) Pneumonia: Problem details: - dense infiltrate of R lung noted on 06/18/24 CT - evidence of multifocal pneumonia revealed on morning chest x-ray - narrowing antibiotic regimen to oral Levaquin, continue prednisone, Mucinex, aerobika and inhalers - blood cultures negative today - Strep and Legionella Ag negative Status: Acute (4) Pulmonary mass: Problem details: - noted 1st 01/14 and again 12/15 CT - reports unwanted weight loss over past year, increased fatigue, decreased energy - hasn't yet followed up with Pulmonology for bronchoscopy, recommend this as an outpatient Status: Acute Subjective Date Seen: 06/20/24 Interval history: Daily Progress Note - Hospital Medicine #: 3 CC: Community-acquired pneumonia, lung mass, supplemental oxygen dependent. 24 HOUR UPDATE: continues to work on strength and oxygen reliance. He can be still and on 1/2 L maintain >90%; any activity and he drops to 84% requiring up to 2L. he is in good spirits. Notable Labs, Micro, Rads, Interventions: repeat labs and CXR reviewed this morning. White count is up from 18.9 to 23.86, steroids? Hemoglobin stable A1c 5.7. Morning glucose 112. CRP no change. Elevated at 7.8 Procalcitonin is down trending nicely. Two view chest x-ray this morning: Unchanged consolidation within the right middle lobe as well as basilar segments of lower lobes. Patchy airspace opacity in the left mid zone is also identified, related to multifocal pneumonia. Hyperinflation and cystic bronchiectasis. No effusion or pneumothorax. Cardiac size is within normal limit without pulmonary edema Objective: I observed him up walking with PT. nasal cannula oxygen support. Good spirits. Vitals: see above Lungs: Clear. Rhonchi bilaterally Cardiac: S1S2. No edema Disposition/Potential discharge - Home with in the next 24-48 hours Today I spent 50minutes seeing the patient, reviewing Expanse and EPIC n otes/diagnostics, discussing the care plan with our care time that includes social work, PT/OT, pharmacy, RT, half-way and documenting my impressions and plan in the medical record. Exam Const: Vital Signs, click to edit/add: Vital Signs - 24 hr 06/19/24 07:40 06/19/24 08:00 06/19/24 11:39 Temperature 97.9 F 97.5 F L Pulse Rate 52 L Pulse Rate [Left R adial] 68 76 Respiratory Rate 22 18 Blood Pressure [Le ft Arm] 91/61 123/71 Pulse Oximetry 92 92 Oxygen Delivery Me thod Nasal Cannula Nasal Cannula Oxygen Flow Rate 1 1 06/19/24 15:00 06/19/24 15:00 06/19/24 15:00 Temperature Pulse Rate 71 Pulse Rate [Left R adial] 73 Respiratory Rate 22 22 Blood Pressure [Le ft Arm] Pulse Oximetry 90 Oxygen Delivery Me thod Nasal Cannula Oxygen Flow Rate 1.5 06/19/24 15:20 06/19/24 16:01 06/19/24 19:15 Temperature 97.9 F 98.1 F Pulse Rate Pulse Rate [Left R adial] 73 76 Respiratory Rate 22 16 Blood Pressure [Le ft Arm] 116/70 127/85 Pulse Oximetry 90 84 L 94 Oxygen Delivery Me thod Nasal Cannula Room Air Nasal Cannula Oxygen Flow Rate 1 1 06/19/24 21:22 06/19/24 22:52 06/19/24 22:54 Temperature 98.2 F Pulse Rate 77 Pulse Rate [Left R adial] 75 75 Respiratory Rate 18 18 Blood Pressure [Le ft Arm] 113/90 H Pulse Oximetry 93 Oxygen Delivery Me thod Nasal Cannula Oxygen Flow Rate 1 06/19/24 22:54 06/20/24 02:59 Temperature 98.2 F Pulse Rate Pulse Rate [Left R adial] 75 Respiratory Rate 18 18 Blood Pressure [Le ft Arm] 111/60 Pulse Oximetry 93 93 Oxygen Delivery Me thod Nasal Cannula Nasal Cannula Oxygen Flow Rate 1 0.5 Labs Labs: Laboratory Results - last 24 hr 06/19/24 05:49 WBC 18.90 H RBC 4.08 L Hgb 12.8 L Hct 40.4 MCV 99 MCH 31 MCHC 32 RDW Coeff of Kianna 13.7 Plt Count 259 Neut % (Auto) 90.9 H Lymph % (Auto) 2.9 L [place] % (Auto) 5.0 Eos % (Auto) 0.0 Baso % (Auto) 0.1 Neut # (Auto) 17.20 H Lymph # (Auto) 0.50 L [place] # (Auto) 0.90 Eos # (Auto) 0.00 Baso # (Auto) 0.00 Abs Immat Gran (auto) 0.20 Imm/Tot Granulo (auto) 1.1 Sodium 138 Potassium 5.1 Chloride 105 Carbon Dioxide 29 Anion Gap 4 L BUN 22 Creatinine 0.6 Estimated Creat Clear 58.46 Estimated GFR 100 Glucose 221 H Calcium 9.4 Total Bilirubin 0.5 AST 31 ALT 25 Alkaline Phosphatase 73 Total Protein 6.7 Albumin 3.2 L Procalcitonin 14.70 H
--- NOTE | 2024-06-20 07:03 | CRLHL7_ITS ---
For Patients: As a result of the Century Cures Act, medical imaging exams and procedure reports are released immediately into your electronic medical record. You may view this report before your referring provider. If you have questions, please contact your health care provider. INDICATION: Follow-up on dense infiltrate within the middle right lung. TECHNIQUE: Chest 2 views. COMPARISON: None. FINDINGS/ IMPRESSION: Unchanged consolidation within the right middle lobe as well as basilar segments of lower lobes. Patchy airspace opacity in the left mid zone is also identified, related to multifocal pneumonia. Hyperinflation and cystic bronchiectasis. No effusion or pneumothorax. Cardiac size is within normal limit without pulmonary edema. Dictated by Rafa Bryan MD @ 06/20/2024 7:51:34 AM (Electronically Signed)
[2024-06-20 07:38] LABS: C Reactive Protein* 7.9 mg/dL (0.5-1.0)
[2024-06-20 07:45] LABS: HCO3 VBG 30 mmol/L (21-28); PCO2 VBG 53 mmHG (40-50); PO2 VBG 40.5 mmHG (25-47); pH VBG 7.361 (7.32-7.43)
[2024-06-20 07:46] LABS: Hematocrit 42.2 % (37.0-53.0); Hemoglobin* 13.2 gm/dL (13.5-17.5); Immature Granulocytes Pct Auto 1.7 %; Lymphocytes Percent Auto 4.4 % (20-44); Mean Corpuscular HGB Conc 31 gm/dL (32-36); Mean Corpuscular Hemoglobin 31 pg (26-34); Mean Corpuscular Volume 100 fL (80-100); Monocytes Percent Auto 5.5 % (0.0-11.0); Neutrophils Percent Auto 88.4 % (42.0-72.0); Platelet Count* 316 K/uL (140-440); RDW Coefficient of Variation % 13.9 % (11.5-15.5); Red Blood Count 4.21 m/uL (4.30-5.90); White Blood Count* 23.86 K/uL (4.50-11.00)
[2024-06-20 07:49] LABS: Slide Review Reflex No
[2024-06-20 08:24] LABS: Chloride* 107 mmol/L (96-114)
[2024-06-20 08:25] LABS: Potassium* 4.5 mmol/L (3.6-5.1); Sodium* 141 mmol/L (135-149)
[2024-06-20 08:27] LABS: Creatinine* 0.7 mg/dL (0.5-1.5); Est. Creatinine Clearance* 58.76; Estimated Glomerular Filt Rate 95 ml/min
[2024-06-20 08:28] LABS: Anion Gap 4 mEq/L (7-15); Blood Urea Nitrogen* 21 mg/dL (7-30); Carbon Dioxide* 30 mmol/L (20-32); Glucose* 112 mg/dL (60-115)
[2024-06-20 08:29] LABS: Calcium* 10.1 mg/dL (8.4-10.6)
[2024-06-20 08:30] LABS: Hemoglobin A1C* 5.7 % (0-5.6)
[2024-06-20 08:31] LABS: C Reactive Protein* 7.8 mg/dL (0.5-1.0)
[2024-06-20 08:39] LABS: NT Pro B Type NatriureticPept* 485 pg/mL
[2024-06-20 08:44] LABS: Procalcitonin* 7.93 ng/mL (<0.50)
[2024-06-20] MEDS: guaiFENesin 600 MG TAB.ER.12H PO ×2 (09:03→20:15)
[2024-06-20] MEDS: predniSONE 20 MG TABLET 40 MG PO (09:03)
[2024-06-20] MEDS: LORATADINE 10 MG TABLET PO (09:03)
[2024-06-20] MEDS: ASPIRIN 81 MG TABLET EC PO (09:03)
[2024-06-20] MEDS: SODIUM CHLORIDE 0.9 % (FLUSH) 10 ML SYRINGE 5 ML IVF ×2 (09:05→20:16)
[2024-06-20] MEDS: levoFLOXacin 500 MG TABLET PO (10:30)
[2024-06-20] MEDS: ENOXAPARIN 40 MG/0.4 ML INJ SUBCUT (20:15)
[2024-06-21 03:00] VITALS: PULSE 72; O2SAT 94
[2024-06-21] MEDS: OMEPRAZOLE 20 MG CAPSULE DR 40 MG PO (05:59)
[2024-06-21 06:03] VITALS: BP 132/72; RESP 20; TEMP 36.6
[2024-06-21 06:13] LABS: Eosinophils Percent Auto 0.2 % (0.0-7.0); Hematocrit 43.1 % (37.0-53.0); Hemoglobin* 13.6 gm/dL (13.5-17.5); Immature Granulocytes Pct Auto 5.3 %; Lymphocytes Percent Auto 4.4 % (20-44); Mean Corpuscular HGB Conc 32 gm/dL (32-36); Mean Corpuscular Hemoglobin 32 pg (26-34); Mean Corpuscular Volume 100 fL (80-100); Neutrophils Percent Auto 79.1 % (42.0-72.0); Platelet Count* 339 K/uL (140-440); RDW Coefficient of Variation % 13.7 % (11.5-15.5); White Blood Count* 14.41 K/uL (4.50-11.00)
[2024-06-21 06:17] LABS: Slide Review Reflex No
[2024-06-21 06:39] LABS: Albumin* 3.1 g/dL (3.3-5.0); Chloride* 104 mmol/L (96-114); Sodium* 140 mmol/L (135-149)
--- NOTE | 2024-06-21 06:40 | PC.NURSE ---
End of shift summary: Pt has been A&O, afebrile & VSS overnight. Ongoing O2 needs at 1.5L to maintain > 90%. Pt is independent in his room, reports x1 moderate watery BM overnight. TELE read NSR rate in the 60s-70s. Denies having pain or nausea. Reports SOB with exertion & productive cough. PIV in right AC SL and C/D/I. Pt slept well in between cares. IV abx transitioned to PO Levaquin in anticipation of discharging home today with home O2. Droplet precautions ongoing for CAP.?
[2024-06-21 06:42] LABS: Creatinine* 0.6 mg/dL (0.5-1.5); Est. Creatinine Clearance* 58.76; Estimated Glomerular Filt Rate 100 ml/min
[2024-06-21 06:43] LABS: Anion Gap 2 mEq/L (7-15); Blood Urea Nitrogen* 19 mg/dL (7-30); Calcium* 9.2 mg/dL (8.4-10.6); Carbon Dioxide* 34 mmol/L (20-32); Glucose* 106 mg/dL (60-115); Phosphorus* 2.8 mg/dL (2.5-4.5)
[2024-06-21 06:45] LABS: C Reactive Protein* 3.5 mg/dL (0.5-1.0)
[2024-06-21 06:59] LABS: Procalcitonin* 3.36 ng/mL (<0.50)
[2024-06-21 07:00] VITALS: BP 125/69; PULSE 64; PULSE 72; RESP 22; TEMP 36.6; O2SAT 95
[2024-06-21] MEDS: levoFLOXacin 500 MG TABLET PO (09:11)
[2024-06-21] MEDS: predniSONE 20 MG TABLET 40 MG PO (09:11)
[2024-06-21] MEDS: guaiFENesin 600 MG TAB.ER.12H PO (09:11)
[2024-06-21] MEDS: ASPIRIN 81 MG TABLET EC PO (09:11)
[2024-06-21] MEDS: SODIUM CHLORIDE 0.9 % (FLUSH) 10 ML SYRINGE 5 ML IVF (09:11)
[2024-06-21] MEDS: LORATADINE 10 MG TABLET PO (09:11)
--- NOTE | 2024-06-22 10:54 | PM.DS1 ---
DS: Providers Provider Date Seen: 06/21/24 Date of admission: 06/18/24 14:49 Primary care physician: Braxton Oconnor MD Admitting Clinician: Katherine Han MD Consults: 06/18/24 14:52 Consult to Nutrition [CONS] Routine Comment: Reason for consult:: Miscellaneous Comment: weight loss, COPD Consult to Physical Therapy [CONS] Routine Comment: Reason(s) for PT Consult:: Evaluate and Treat Any Restrictions?:: No Restrictions 06/18/24 14:54 Consult to Occupational Therapy [CONS] Routine Comment: Reason(s) for OT Consult:: Evaluate and Treat Any Restrictions?:: No Restrictions 06/18/24 18:32 Consult to Respiratory Therapy [CONS] Routine Comment: Reason(s) for RT Consult:: Consult Attending Physician on discharge: Roxanne Chopra MD [facility] Date of Discharge: 06/21/24 DS: Diagnosis Discharge Diagnosis (1) Acute hypoxic respiratory failure: Status: Acute Problem details: - 2/2 PNA and other findings on CT (mucous plugging, bronchiectasis), h/o COPD - RT referral for education, accessories - Home oxygen ordered 06/21 - 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 (2) Pneumonia: Status: Acute Problem details: - dense infiltrate of R lung noted on 06/18/24 CT - evidence of multifocal pneumonia revealed on morning chest x-ray - narrowing antibiotic regimen to oral Levaquin, continue prednisone, Mucinex, aerobika and inhalers - blood cultures negative today - Strep and Legionella Ag negative (3) Pulmonary mass: Status: Acute Problem details: - noted 1st 01/14 and again 12/15 CT - reports unwanted weight loss over past year, increased fatigue, decreased energy - hasn't yet followed up with Pulmonology for bronchoscopy, recommend this as an outpatient (4) Abnormal weight loss: Status: Acute (5) Chronic obstructive pulmonary disease: Status: Acute (6) Bronchiectasis: Status: Acute (7) Tobacco use: Status: Acute Problem details: Quit 2010 DS: Summary Hospital Course Hospital Course: FINAL DIAGNOSIS/FOLLOW UP ISSUES: 1. Pneumonia - finish oral antibiotics. Home O2 will likely be weaned in the coming weeks. Follow-up imaging and pulmonary referral was explained to the patient 2. COPD. Continue care with pulmonology BRIEF HOSPITAL COURSE: Patient was admitted for 4 days. Synopsis of acute inpatient issues are outlined above. Chronic medical conditions with notable findings outlined above. Our concern for Juan Pablo is this RLL infiltrate is post-obstructive from a pulmonary mass/malignancy. He definitely has findings on his CT 8 consistent with chronic lung disease related to years of smoking, this includes bronchiectasis and emphysema. We stressed the importance of follow-up with the embedded systems software engineer. I did place a referral to the [facility] for a pulmonary referral. His PCP can also help get this arranged. DISCHARGE MEDICATIONS: See Reconciled list - SIGNIFICANT CHANGES: Finishes course of Levaquin Prednisone taper Specific instructions to the patient and follow-up are outlined below. REVIEW OF SYSTEMS No new chest pain or dyspnea Pain controlled No voiding difficulties Tolerating diet challenge PHYSICAL EXAM: CONSTITUTIONAL: Happy, insightful. VITAL SIGNS: see record. HEENT: Normocephalic, atraumatic. PERRL, EOMI, conjunctivae pink, no scleral icterus. Ears and nose externally normal. Pharynx normal. NECK: No JVD. No carotid bruit, no thyromegaly, no adenopathy. CHEST: Rhonchi bilaterally. HEART: S1 and S2 normal. Edema minimal ABDOMEN: Soft, nontender. Normal bowel sounds. MUSCULOSKELETAL: No gross joint deformity or swelling. NEURO: Cranial nerves intact. Grossly intact. No asymmetric findings. SKIN: No rashes, petechiae, concerning changes PSYCHIATRIC: Mood euthymic. DISPOSITION: Home with Time spent on discharge 37 minutes. Status at Discharge Functional status at discharge: uses cane/walker Overall status at discharge: patient is progressing back to baseline Time Spent with Patient Time attestation: Total time spent providing and/or coordinating discharge services: Time spent: Greater than 30 minutes DS: Data Data Completed and Pending Labs on day of discharge: Preliminary micro results at discharge 06/18/24 10:30 Blood Culture - Preliminary Blood NO GROWTH AFTER 96 HOURS Discharge Plan Discharge Disposition: Home w/ Parent or Adult Date of Admission: 06/18/24 14:49 Attending Provider on Discharge: Roxanne Chopra Primary Care Provider: Braxton Oconnor Condition: Unchanged Anticipated Discharge Date/Time: 06/21/24 10:44 Discharge Medications: New prednisone 20 mg Tablet 20 mg PO DAILYWM Qty: 7 0RF Rx Instructions: starting 06/21, take one tablet (20mg) daily for five days. Then take 1/2 tab daily for four days. Then take (from the bottle of 5mg) take one tab for five days. then take 1/2 tab (2.5mg) every other day for 2 doses. levofloxacin 500 mg Tablet 500 mg PO Q24H Qty: 5 0RF prednisone 5 mg tablet 5 mg PO DAILY Qty: 6 0RF Rx Instructions: Take one tab for five days. then take 1/2 tab (2.5mg) every other day for 2 doses. Continued aspirin [Adult Low Dose Aspirin] 81 mg tablet,delayed release (DR/EC) 81 mg PO DAILY multivitamin [Multiple Vitamins] Tablet 1 tab PO DAILY ascorbic acid (vitamin C) 500 mg capsule 500 mg PO DAILY ginkgo biloba 40 mg tablet 40 mg PO DAILY Rx Instructions: give with meal/snack loratadine 10 mg tablet 10 mg PO DAILY garlic 300 mg capsule 300 mg PO DAILY fluticasone propion-salmeterol [Advair Diskus] 250-50 mcg/dose blister with device 1 inh inhalation BID Qty: 60 0RF Patient Comments: TAKES A SIMILIAR PRODUCT FROM [place] - SERETIDE DISKUS acetaminophen 500 mg tablet 1,000 mg PO TID PRN albuterol sulfate 90 mcg/actuation HFA aerosol inhaler 2 puff inhalation Q4H PRN Patient Comments: USES SALBUTAMOL FROM [place] Spiriva Respimat 2.5 mcg/actuation mist 2 inh inhalation QAM Qty: 4 5RF omega 4-odc-upn-fish oil [Fish Oil] 1,000 (120-180) mg capsule 1 cap PO Q48H Rx Instructions: EVERY OTHER DAY desonide 0.05 % cream 1 applic topical BID PRN Rx Instructions: Use up to 8 days per month. ketoconazole 2 % shampoo 1 applic topical 2XW PRN ketoconazole 2 % cream 1 applic topical 3XW PRN Discharge Orders: Discharge Order (Routine); Ordered 06/21/24 Ordered By: Roxanne Chopra Patient Education: Levofloxacin (By mouth), Prednisolone (By mouth), Using Oxygen at Home (DC), Pneumonia (DC) Additional Instructions: Follow instructions for home oxygen directed by our respiratory therapist. Finish antibiotic for the next 5 days, once daily with food Finish the prednisone taper as directed Talk with Dr. Oconnor about a pulmonology referral and bronchoscopy. I have printed you the last 3 chest [address]s for your information. The density (spot) in the right lower lung they saw last summer is covered up by the current pneumonia. There are chronic changes in the lungs from smoking. 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 You should follow with a lung specialist for the rest of your life, simply put. You will be high risk for hospitalizations given your lung function and damage. Activity Level: Activity as Tolerated Discharge Diet: Regular Follow Up Appointments: [facility] [Provider Group] - 07/19/24 (please schedule with pulmonary medicine. Pulmonary mass noted in recent months without resolution. Bronchoscopy is likely needed. Next available, BRI[facility]. ) Braxton Oconnor MD [Primary Care Provider] - 07/05/24 10:45 am ([facility] for follow-up, discuss oxygen need and f/u with pulmonary medicine. ) Forms: [employer] Info Instructions
== END 2024-06-21 14:15 | disposition home or self-care (01) | DRG 193 ==
LOC: ED 11:46 → MEDSURG 12:35
PROVIDERS: Family Medicine; Admitting Provider Family Medicine; Emergency Provider Emergency Medicine Emergency Medical Services; PCP Family Medicine; Visit Provider Family Medicine
DX: J18.9 Pneumonia, unspecified organism (principal); J96.01 Acute respiratory failure with hypoxia; J47.0 Bronchiectasis with acute lower respiratory infection; J44.0 Chronic obstructive pulmonary disease with (acute) lower respiratory infection; R91.1 Solitary pulmonary nodule; R63.4 Abnormal weight loss; Z68.23 Body mass index [BMI] 23.0-23.9, adult; Z87.891 Personal history of nicotine dependence; E78.5 Hyperlipidemia, unspecified
CPT/HCPCS: 36415; 71046; 71275; 80048; 80053; 80069; 82565; 82803; 83036; 83605; 83880; 84145; 84484; 85025; 86140; 87040; 87449; 87631; 87899; 93005; 94664; 94761; 97110; 97116; 97161; 97165; 97530; 97535; 99284; 99285; A9270; J0696; J1650; J2543; J2919; J3372; J7030; J7512; Q9967